=== PATIENT | female | born 1995 ===

== ENCOUNTER → 2017-03-01 | Emergency (ER) | payer OTHER ==
[~2017-03-01] MED LIST: BACTROBAN OINT22 GM TOP; CEFADROXIL500 MG PO; CEFTIN250 MG PO; KETO10TA2 PO; PRENATABS FA T1 EACH; URIN D.S. TABLE1 TAB PO
== END | disposition left against medical advice (07) ==
LOC: ER 12:00
DX: Z53.20 Procedure and treatment not carried out because of patient's decision for unspecified reasons (principal)

== ENCOUNTER → 2017-03-03 | Emergency (ER) | payer OTHER ==
[~2017-03-03] VITALS: Ht 149.9 cm; Wt 58.1 kg
== END | disposition home or self-care (01) ==
LOC: ER 10:53
DX: R51 Headache (principal); O26.892 Other specified pregnancy related conditions, second trimester; Z34.02 Encounter for supervision of normal first pregnancy, second trimester

== ENCOUNTER 2017-08-14 07:00 | Inpatient (IN) | payer OTHER ==
[~2017-08-14] VITALS: Ht 149.9 cm; Wt 68.0 kg
== END 2017-08-16 14:57 | DRG 775 ==
LOC: LDR 07:00 → OB/GYN 07:00
PROC: 10E0XZZ Delivery of Products of Conception, External Approach (ICD-10-PCS; principal; 2017-08-14)
PROC: 0HQ9XZZ Repair Perineum Skin, External Approach (ICD-10-PCS; 2017-08-14)
PROC: 10907ZC Drainage of Amniotic Fluid, Therapeutic from Products of Conception, Via Natural or Artificial Opening (ICD-10-PCS; 2017-08-14)
PROC: 3E0P7VZ Introduction of Hormone into Female Reproductive, Via Natural or Artificial Opening (ICD-10-PCS; 2017-08-14)
PROC: 3E033VJ Introduction of Other Hormone into Peripheral Vein, Percutaneous Approach (ICD-10-PCS; 2017-08-14)
PROC: 4A1HXCZ Monitoring of Products of Conception, Cardiac Rate, External Approach (ICD-10-PCS; 2017-08-14)
DX: O70.0 First degree perineal laceration during delivery (principal); O69.81X0 Labor and delivery complicated by cord around neck, without compression, not applicable or unspecified; O99.824 Streptococcus B carrier state complicating childbirth; Z3A.39 39 weeks gestation of pregnancy; Z37.0 Single live birth

== ENCOUNTER 2017-09-27 14:38 | Emergency (ER) | payer OTHER ==
[~2017-09-27] VITALS: Ht 149.9 cm; Wt 59.0 kg
== END 2017-09-27 17:00 | disposition home or self-care (01) ==
LOC: ER 14:38
DX: S01.111A Laceration without foreign body of right eyelid and periocular area, initial encounter (principal); W10.8XXA Fall (on) (from) other stairs and steps, initial encounter; Y93.89 Activity, other specified; Y92.098 Other place in other non-institutional residence as the place of occurrence of the external cause; Y99.8 Other external cause status